=== PATIENT | male | born 1945 | race Caucasian/White ===

== ENCOUNTER → 2016-08-13 | Outpatient (CLI) | payer MEDICARE, BC, OTHER ==
[~2016-08-13] VITALS: Ht 167.6 cm; Wt 104.3 kg
[~2016-08-13] MED LIST: ASPI81TA85 PO; CIAL5TAB PO; CLAR1TAB2 PO; CLOP75TA2 PO; CRES40TA PO; LISI20TA PO; METF500T PO; MULTCAP12 PO; NADO80TA PO; NIFE60TA6 PO; NS 1,000 ML IV ONE; ONGL1TAB9 PO; PANT40TA2 PO; PROPOFOL 200 MG/20 ML VIAL As Ordered ONE; TYLE325T5 PO; ZYLO300T4 PO
--- NOTE | 2016-08-13 10:53 | ROOR ---
Patient Name: Rafi De Jesus Procedure Date: 08/13/2016 10:35 AM Date of : 1945 Age: 71 Room: [facility] Gender: Male Note Status: Finalized Procedure: Colonoscopy Indications: Screening for colorectal malignant neoplasm Providers: Evgeny JAMES MD Referring MD: FUAD LOAIZA MD Requesting Provider: Medicines: Monitored Anesthesia Care Complications: No immediate complications. Procedure: Pre-Anesthesia Assessment: - The heart rate, respiratory rate, oxygen saturations, blood pressure, adequacy of pulmonary ventilation, and response to care were monitored throughout the procedure. The Colonoscope was introduced through the anus and advanced to the cecum, identified by appendiceal orifice and ileocecal valve. The colonoscopy was performed without difficulty. The patient tolerated the procedure well. The quality of the bowel preparation was good. Findings: (Exam: Complete, Prep: Good or Excellent.) The perianal and digital rectal examinations were normal. Internal hemorrhoids were found during retroflexion. The hemorrhoids were moderate. The entire examined colon appeared normal on direct and retroflexion views. Impression: - Internal hemorrhoids. - The entire colon is normal on direct and retroflexion views. - No specimens collected. Recommendation: - Discharge patient to home. - Repeat colonoscopy in 10 years for screening purposes. Evgeny James MD Evgeny JAMES MD 08/13/2016 10:52:19 AM This report has been signed electronically. Number of Addenda: 0 Note Initiated On: 08/13/2016 10:35 AM Estimated Blood Loss: Estimated blood loss: none.
[2016-08-13 11:13] VITALS: BP 162/95
== END | disposition home or self-care (01) ==
LOC: M OPP 08:47
PROVIDERS: ATTEND Internal Medicine Gastroenterology
DX: Z12.11 Encounter for screening for malignant neoplasm of colon (principal); K64.8 Other hemorrhoids; K21.9 Gastro-esophageal reflux disease without esophagitis; I10 Essential (primary) hypertension; E78.00 Pure hypercholesterolemia, unspecified; E11.9 Type 2 diabetes mellitus without complications; M19.90 Unspecified osteoarthritis, unspecified site; Z95.5 Presence of coronary angioplasty implant and graft; Z79.899 Other long term (current) drug therapy; Z79.82 Long term (current) use of aspirin; Z79.84 Long term (current) use of oral hypoglycemic drugs